=== PATIENT | female | born 1960 | race Caucasian/White ===

== ENCOUNTER → 2016-11-05 | Outpatient (CLI) | payer BC ==
[~2016-11-05] MED LIST: ALBUAER19 INH; AMOX500T3 PO; BUPR-79 PO; CALC1CHW24 PO; CYAN10005 SL; ERGO1CAP35 PO; LEVO200T PO; MULT-506 PO; POLY150C12 PO; SERT-234 PO; SYMIN160 INH; TRAZ50TA35 PO; ZINC50TA3 PO
[2016-11-05 09:40] LABS: BASO % 0.3 %; BASO ABS # 0.02 K/uL (0-0.2); COMPLETE YES; EOS % 5.7 %; HEMATOCRIT 40.8 % (37-47); IG% 0.3 %; LYMPH % 24.5 %; LYMPH ABS # 1.63 K/uL (1.2-3.4); MEAN CORPUSCULAR HEMOGLOBIN 28.6 pg (25-34); MEAN CORPUSCULAR HGB CONC 32.8 g/dl (32-36); MEAN PLATELET VOLUME 10.1 fL (7.4-10.4); MONO % 7.8 %; NEUT % 61.4 %; PLATELET COUNT 269 K/uL (130-400); RED BLOOD COUNT 4.69 M/uL (4.2-5.4); WHITE BLOOD COUNT 6.65 K/uL (4.8-10.8)
[2016-11-05 10:09] LABS: ALKALINE PHOSPHATASE 80 U/L (45-117); ALT/SGPT 30 U/L (12-78); BLOOD UREA NITROGEN 20 mg/dl (7-18); BUN/CREATININE RATIO 25.7 (10-20); CARBON DIOXIDE 26 mmol/L (21-32); CHLORIDE 108 mmol/L (98-107); CHOLESTEROL 158 mg/dl (0-200); CHOLESTEROL/HDL RATIO 2.5; CREATININE 0.79 mg/dl (0.60-1.20); FERRITIN 301.5 ng/ml (8.0-388.0); GLUCOSE 86 mg/dl (70-99); HDL CHOLESTEROL 64 mg/dl; LDL CHOLESTEROL CALCULATED 80 mg/dl; POTASSIUM 3.9 mmol/L (3.5-5.1); SODIUM 143 mmol/L (136-145); TRIGLYCERIDES 71 mg/dl (0-150); VERY LOW DENSITY LIPOPROT CALC 14 mg/dl
[2016-11-05 10:15] LABS: ALB/GLOB RATIO 0.9 (0.9-2); AST/SGOT 25 U/L (15-37); CALCIUM 9.1 mg/dl (8.5-10.1)
== END | disposition home or self-care (01) ==
LOC: C.LAB 07:46
DX: K90.9 Intestinal malabsorption, unspecified (principal); E78.5 Hyperlipidemia, unspecified

== ENCOUNTER → 2017-05-04 | Outpatient (CLI) | payer BC ==
[2017-05-04 10:00] LABS: BASO % 0.3 %; BASO ABS # 0.02 K/uL (0-0.2); COMPLETE YES; EOS % 2.8 %; HEMATOCRIT 39.7 % (37-47); IG% 0.5 %; LYMPH ABS # 1.75 K/uL (1.2-3.4); MEAN CELL VOLUME 86.7 fL (80-100); MEAN CORPUSCULAR HEMOGLOBIN 28.8 pg (25-34); MEAN CORPUSCULAR HGB CONC 33.2 g/dl (32-36); MEAN PLATELET VOLUME 9.8 fL (7.4-10.4); MONO % 7.9 %; NEUT % 61.5 %; PLATELET COUNT 234 K/uL (130-400); RED BLOOD COUNT 4.58 M/uL (4.2-5.4); WHITE BLOOD COUNT 6.47 K/uL (4.8-10.8)
[2017-05-04 10:40] LABS: FERRITIN 255.6 ng/ml (8.0-388.0); THYROID STIMULATING HORMONE 1.61 uIu/ml (0.300-4.500)
== END | disposition home or self-care (01) ==
LOC: C.LAB 09:37
DX: E03.9 Hypothyroidism, unspecified (principal); E55.9 Vitamin D deficiency, unspecified; E61.1 Iron deficiency; E53.8 Deficiency of other specified B group vitamins